=== PATIENT | male | born 1995 | race Caucasian/White ===

== ENCOUNTER 2018-11-11 06:11 | Emergency (ER) | payer SELFPAY ==
[~2018-11-11] VITALS: Ht 170.1 cm; Wt 65.8 kg
== END 2018-11-11 07:02 | disposition left against medical advice (07) ==
LOC: ED 06:11
DX: R51 Headache (principal); Z53.21 Procedure and treatment not carried out due to patient leaving prior to being seen by health care provider; W22.8XXA Striking against or struck by other objects, initial encounter; Y93.89 Activity, other specified; Y92.89 Other specified places as the place of occurrence of the external cause; Y99.8 Other external cause status

== ENCOUNTER 2022-01-08 10:26 | Inpatient (IN) | payer SELFPAY ==
[~2022-01-08] VITALS: Ht 170.1 cm; Wt 68.0 kg
[2022-01-08 11:04] VITALS: BP 128/102
[2022-01-08 11:58] LABS: BASO % 0.4 % (0.0-1.0); RED CELL DISTRI WIDTH 10.8 % (0-14.5)
[2022-01-08 12:09] LABS: BASO # 0.1 10*3/uL (0.0-0.1); EOS # 0.1 10*3/uL (0.0-0.4); EOS % 0.5 % (1.0-4.0); LYMPH # 0.3 10*3/uL (1.3-4.4); LYMPH % 1.8 % (27.0-41.0); MEAN CELL VOLUME 91.3 fl (80.0-94.0); MEAN CORPUSCULAR HGB 33.2 pg (27.0-31.0); MEAN CORPUSCULAR HGB CONC 36.4 g/dl (33.0-37.0); MEAN PLATELET VOLUME 9.1 fl (9.6-12.3); MONO # 1.2 10*3/uL (0.1-1.0); MONO % 8.9 % (3.0-9.0); PLATELET COUNT AUTOMATED 179 10*3/uL (130-400); RED BLOOD COUNT 4.82 10*6/uL (4.50-5.90); WHITE BLOOD COUNT 13.7 10*3/uL (4.8-10.8)
[2022-01-08 12:13] LABS: ALKALINE PHOSPHATASE 95 U/L (45-117); BUN 9 mg/dl (7-24); CHLORIDE 100 mmol/L (98-107); CREATININE 1.08 mg/dL (0.70-1.30); POTASSIUM 4.3 mmol/L (3.5-5.1); SGOT/AST 24 IU/L (3-35); SGPT/ALT 20 U/L (12-78); SODIUM 132 mmol/L (136-145); TOTAL PROTEIN 8.5 gm/dL (6.4-8.2)
[2022-01-09 02:22] VITALS: BP 148/86
[2022-01-09 04:57] LABS: ALKALINE PHOSPHATASE 76 U/L (45-117); BUN 10 mg/dl (7-24); CHLORIDE 105 mmol/L (98-107); CHOLESTEROL 115 mg/dL (<200); CREATININE 0.76 mg/dL (0.70-1.30); LDL CHOLESTEROL 43 mg/dL (9-159); POTASSIUM 4.1 mmol/L (3.5-5.1); SGOT/AST 26 IU/L (3-35); SGPT/ALT 22 U/L (12-78); SODIUM 136 mmol/L (136-145); TOTAL PROTEIN 7.7 gm/dL (6.4-8.2); TRIGLYCERIDES 72 mg/dl (<150)
[2022-01-09 06:18] LABS: HEMATOCRIT 41.4 % (42.0-52.0); MEAN CELL VOLUME 92.6 fl (80.0-94.0); MEAN CORPUSCULAR HGB 33.1 pg (27.0-31.0); MEAN CORPUSCULAR HGB CONC 35.7 g/dl (33.0-37.0); PLATELET COUNT AUTOMATED 186 10*3/uL (130-400); RED BLOOD COUNT 4.47 10*6/uL (4.50-5.90); RED CELL DISTRI WIDTH 10.9 % (0-14.5); WHITE BLOOD COUNT 10.4 10*3/uL (4.8-10.8)
[2022-01-09 06:22] LABS: MANUAL DIFF REFLEX YES
[2022-01-09 06:31] LABS: ACT PARTIAL THROMBO TIME 33.6 SECONDS (20.0-32.1)
[2022-01-09 06:49] VITALS: BP 152/88
[2022-01-09 07:17] LABS: PLATELET SUFFICIENCY NORMAL (NORMAL); TOTAL CELLS COUNTED 100 #CELLS
[2022-01-09 08:32] VITALS: BP 132/96
[2022-01-09] MEDS ORDERED: CLEOCIN HCL300 MG PO (09:04)
[2022-01-09] MEDS ORDERED: PREDNISONE10 MG PO (09:04)
== END 2022-01-09 09:15 | disposition home or self-care (01) | DRG 872 ==
LOC: ED 10:26 → EDHOLD 14:47
PROVIDERS: Family Medicine; Nurse Practitioner Family; ADMIT Family Medicine; ATTEND Family Medicine
DX: A41.9 Sepsis, unspecified organism (principal); E87.1 Hypo-osmolality and hyponatremia; E87.2 Acidosis; L03.211 Cellulitis of face; K04.7 Periapical abscess without sinus; E80.6 Other disorders of bilirubin metabolism; R73.9 Hyperglycemia, unspecified; Z83.3 Family history of diabetes mellitus; Z82.49 Family history of ischemic heart disease and other diseases of the circulatory system

== ENCOUNTER 2023-07-05 23:06 | Emergency (ER) | payer SELFPAY ==
[~2023-07-05] VITALS: Ht 170.1 cm; Wt 68.0 kg
[~2023-07-05 23:06] MED LIST: CLEOCIN HCL300 MG PO; PREDNISONE10 MG PO
[2023-07-05] MEDS ORDERED: ACETAMINOPHEN 325 MG TAB PO ONE (23:25)
[2023-07-06] MEDS ORDERED: MELOXICAM15 MG PO (00:47)
== END 2023-07-06 00:56 | disposition home or self-care (01) ==
LOC: ED 23:06
DX: S40.012A Contusion of left shoulder, initial encounter (principal); F17.210 Nicotine dependence, cigarettes, uncomplicated; W01.0XXA Fall on same level from slipping, tripping and stumbling without subsequent striking against object, initial encounter; Y93.89 Activity, other specified; Y92.89 Other specified places as the place of occurrence of the external cause; Y99.0 Civilian activity done for income or pay